=== PATIENT | male | born 1940 | race African-American/Black ===

== ENCOUNTER 2021-07-23 15:02 | Inpatient (IN) | payer MEDICARE, OTHER ==
[~2021-07-23] VITALS: Ht 182.9 cm; Wt 94.2 kg
[2021-07-23 15:20] LABS: ABG BASE EXCESS -4.4 mmol/L (-2.0-3.0); ABG CARBOXYHEMOGLOBIN 0.9 % (0.0-1.5); ABG HCO3 21.6 mmol/L (22.0-26.0); ABG METHEMOGLOBIN 0.1 % (0.0-1.5); ABG OXYGEN CONTENT 15.9 mL/dL (15.0-23.0); ABG OXYHEMOGLOBIN 93.1 % (94.0-100.0); ABG PCO2 30 mmHg (35-45); ABG PH 7.434 (7.35-7.450); ABG TOTAL HEMOGLOBIN 12.1 G/dL (12.0-18.0); PO2, ARTERIAL BG 73.8 mmHg (71.0-79.0); SOURCE, BLOOD GAS ARTERIAL; TEMPERATURE, FAHRENHEIT, BG 99.3 FAHREN (96.0-98.6)
[2021-07-23 15:21] LABS: SITE, BLOOD GAS LFT RADIAL
[2021-07-23 15:22] LABS: ABG A-A DIFF O2 147.4 mmHg (10-20.0); O2 DEVICE,BLOOD GAS NC (ROOM AIR)
[2021-07-23] MEDS ORDERED: TICA90TA PO (15:31)
[2021-07-23] MEDS ORDERED: XALA2.5OS OU (15:31)
[2021-07-23] MEDS ORDERED: DONE10TA8 PO (15:31)
[2021-07-23] MEDS ORDERED: ATOR40TA28 PO (15:31)
[2021-07-23] MEDS ORDERED: TRAZ-252 PO (15:31)
[2021-07-23] MEDS ORDERED: CARB-98 PO (15:31)
[2021-07-23] MEDS ORDERED: ISOS30TA92 PO (15:31)
[2021-07-23] MEDS ORDERED: IPRA4AER IH (15:31)
[2021-07-23] MEDS ORDERED: LOSA-370 PO (15:31)
[2021-07-23] MEDS ORDERED: ALLO-45 PO (15:31)
[2021-07-23] MEDS ORDERED: FERR-89 PO (15:31)
[2021-07-23] MEDS ORDERED: MELA5TAB40 PO (15:31)
[2021-07-23] MEDS ORDERED: FURO20 PO (15:31)
[2021-07-23] MEDS ORDERED: METO-558 PO (15:31)
[2021-07-23] MEDS ORDERED: ASPI-1450 PO (15:31)
[2021-07-23] MEDS ORDERED: POLY17PO47 PO (15:31)
[2021-07-23 15:34] LABS: BASOPHILS % (AUTO) 0.1 % (0.0-2.0); EOSINOPHILS % (AUTO) 0.1 % (1.0-6.0); HEMOGLOBIN 11.6 g/dL (13.5-17.5); LYMPHOCYTES % (AUTO) 10.4 % (22.0-44.0); MEAN CORPUSCULAR HEMOGLOBIN 34.8 pg (26.0-34.0); MEAN CORPUSCULAR HGB CONC 33.2 G/dL (31.0-37.0); MEAN CORPUSCULAR VOLUME 105 fL (80-100); MONOCYTES # (AUTO) 0.6 K/uL (0.1-1.0); MONOCYTES % (AUTO) 5.7 % (2.0-9.0); NEUTROPHILS # (AUTO) 8.3 K/uL (1.8-7.7); NEUTROPHILS % (AUTO) 83.7 % (40.0-70.0); PLATELET COUNT (AUTO) 299 K/uL (150-450); RED BLOOD CELL COUNT(AUTO) 3.34 MIL/uL (4.50-5.90); RED CELL DISTRIBUTION WIDTH 14.6 % (11.5-14.5)
[2021-07-23 15:55] LABS: ANION GAP 7 mmol/L (8-16); CALCIUM, TOTAL 8.8 mg/dL (8.8-10.5); CARBON DIOXIDE 27 mmol/L (22-29); CHLORIDE 101 mmol/L (98-107); CREATININE 1.15 mg/dL (0.60-1.30); GLUCOSE,RANDOM 174 mg/dL (70-110); POTASSIUM 3.5 mmol/L (3.5-5.1); SODIUM SERUM 135 mmol/L (136-145); UREA NITROGEN, BLOOD 10 mg/dL (7-18)
[2021-07-23 15:57] LABS: GLOMERULAR FILTR. RATE CALC > 60 mL/min (>60)
[2021-07-23 16:08] LABS: LACTIC ACID 2.3 mmol/L (0.4-2.0)
[2021-07-23 16:12] LABS: ALANINE AMINOTRANSFERASE 5 U/L (12-78); ALBUMIN 2.9 g/dL (3.4-5.0); ALKALINE PHOSPHATASE 117 U/L (46-116); ASPARTATE AMINOTRANSFERASE 16 U/L (15-37); BILIRUBIN,TOTAL 0.9 mg/dL (0.1-1.0); C-REACTIVE PROTEIN QUANT 13.98 mg/dL (0.00-0.30); CREATINE KINASE, TOTAL ONLY 62 U/L (39-308); FERRITIN 323 ng/mL (26-388); LACTATE DEHYDROGENASE 194 U/L (85-227)
[2021-07-23 16:14] LABS: D-DIMER 2.84 mg/L FEU (0.00-0.50); PROTHROMBIN TIME 10.9 SEC (9.4-11.6)
[2021-07-23] MEDS ORDERED: ACETAMINOPHEN 1000 MG/ISO-OSM 100 ML IV ONE (16:15)
[2021-07-23] MEDS ORDERED: DEXAMETHASONE SOD PHOS 4 MG/ML 5 ML VIAL IVP ONE (16:15)
[2021-07-23] MEDS ORDERED: AZITHROMYCIN 500 MG/NS 250 ML IV ONE (16:15)
[2021-07-23] MEDS ORDERED: CefTRIAXone 1 GM/DEXTROSE 50 ML IV ONE (16:15)
[2021-07-23 16:18] LABS: B-TYPE NATRIURETIC PEPTIDE 44 pg/mL (0-100)
[2021-07-23] MEDS ORDERED: SODIUM CHLORIDE 0.9% 2,500 ML IV ONE (16:45)
[2021-07-23] MEDS ORDERED: REMDESIVIR 200 MG in SODIUM CHLORIDE 0.9% 250 ML IV ONE (17:15)
[2021-07-23] MEDS ORDERED: BENZONATATE 100 MG CAPSULE PO PRN (17:15)
[2021-07-23] MEDS ORDERED: ONDANSETRON HCL 4 MG/2 ML VIAL IVP PRN (17:15)
[2021-07-23] MEDS ORDERED: DEXTROSE 50%-WATER 25 GM/50 ML SYRINGE IVP PRN (17:15)
[2021-07-23] MEDS ORDERED: ALBUTEROL SULFATE HFA 90 MCG/PUFF 8 GM INHALER IH PRN (17:15)
[2021-07-23] MEDS ORDERED: ACETAMINOPHEN 325 MG TABLET PO PRN (17:15)
[2021-07-23 17:24] LABS: INFLUENZA TYPE A NEGATIVE FOR TYPE A (NEGATIVE); INFLUENZA TYPE B NEGATIVE FOR TYPE B (NEGATIVE)
[2021-07-23] MEDS ORDERED: PIPERACILLIN/TAZO 3.375 GM/D5W 50 ML IV ONE (19:30)
[2021-07-23] MEDS: HEPARIN SODIUM,PORCINE 5,000 UNITS/ML VIAL SQ SCH ×2 (21:00→22:29)
[2021-07-23 22:00] VITALS: BP 108/67
[2021-07-23] MEDS: FAMOTIDINE 20 MG TABLET PO SCH (22:29)
[2021-07-23] MEDS: DOCUSATE SODIUM 100 MG CAPSULE PO SCH (22:29)
[2021-07-23] MEDS: ATORVASTATIN CALCIUM 20 MG TABLET PO SCH (22:29)
[2021-07-23] MEDS: TICAGRELOR 90 MG TABLET PO SCH (22:29)
[2021-07-24] VITALS: BP 112/30
[2021-07-24 02:11] LABS: GLUCOSE,POINT OF CARE 174 MG/DL (70-110)
[2021-07-24] MEDS ORDERED: SODIUM CHLORIDE 0.9% 250 ML IV ONE (02:18)
[2021-07-24] MEDS: PIPERACILLIN/TAZO 3.375 GM/D5W 50 ML IV SCH ×4 (02:20→20:40)
[2021-07-24 04:00] VITALS: BP 104/50
[2021-07-24 06:08] LABS: ALANINE AMINOTRANSFERASE 10 U/L (12-78); ALBUMIN 2.6 g/dL (3.4-5.0); ALKALINE PHOSPHATASE 98 U/L (46-116); ANION GAP 8 mmol/L (8-16); ASPARTATE AMINOTRANSFERASE 17 U/L (15-37); BILIRUBIN,TOTAL 0.8 mg/dL (0.1-1.0); CALCIUM, TOTAL 8.5 mg/dL (8.8-10.5); CARBON DIOXIDE 26 mmol/L (22-29); CHLORIDE 104 mmol/L (98-107); CREATININE 1.23 mg/dL (0.60-1.30); GLUCOSE,RANDOM 157 mg/dL (70-110); POTASSIUM 3.4 mmol/L (3.5-5.1); SODIUM SERUM 138 mmol/L (136-145); TOTAL PROTEIN, SERUM 7.8 g/dL (6.4-8.2); UREA NITROGEN, BLOOD 12 mg/dL (7-18)
[2021-07-24 06:49] LABS: GLOMERULAR FILTR. RATE CALC > 60 mL/min (>60)
[2021-07-24] MEDS: INSULIN LISPRO 100 UNITS/ML SQ PRN ×2 (06:49)
[2021-07-24 08:00] VITALS: BP 129/57
[2021-07-24] MEDS: DEXAMETHASONE SOD PHOS 4 MG/ML VIAL IVP SCH (08:15)
[2021-07-24] MEDS: ASPIRIN 81 MG CHEWABLE TABLET PO SCH (08:16)
[2021-07-24] MEDS: TICAGRELOR 90 MG TABLET PO SCH ×2 (08:16→22:43)
[2021-07-24] MEDS: DOCUSATE SODIUM 100 MG CAPSULE PO SCH ×2 (08:17→21:20)
[2021-07-24] MEDS: FAMOTIDINE 20 MG TABLET PO SCH ×2 (08:18→21:21)
[2021-07-24] MEDS ORDERED: BENZONATATE 100 MG CAPSULE PO PRN (08:30)
[2021-07-24 12:00] VITALS: BP 108/56
[2021-07-24 12:27] LABS: GLUCOSE,POINT OF CARE 156 MG/DL (70-110)
[2021-07-24 13:26] LABS: GLUCOSE,POINT OF CARE 137 MG/DL (70-110)
[2021-07-24] MEDS: HEPARIN SODIUM,PORCINE 5,000 UNITS/ML VIAL SQ SCH ×2 (15:40→21:21)
[2021-07-24 16:00] VITALS: BP 109/55
[2021-07-24] MEDS: REMDESIVIR 100 MG in SODIUM CHLORIDE 0.9% 250 ML IV SCH (17:51)
[2021-07-24 18:59] VITALS: BP 107/52
[2021-07-24] MEDS: ATORVASTATIN CALCIUM 20 MG TABLET PO SCH (21:20)
[2021-07-24 23:32] LABS: GLUCOMETER DEV NAME(LOC) 5S.1; GLUCOSE,POINT OF CARE 147 MG/DL (70-110)
[2021-07-25] VITALS (7 sets, daily range): BP systolic 106–164; BP diastolic 63–90
[2021-07-25] MEDS: PIPERACILLIN/TAZO 3.375 GM/D5W 50 ML IV SCH ×4 (01:26→21:42)
[2021-07-25] MEDS: ASPIRIN 81 MG CHEWABLE TABLET PO SCH (09:00)
[2021-07-25] MEDS: HEPARIN SODIUM,PORCINE 5,000 UNITS/ML VIAL SQ SCH ×3 (09:00→20:21)
[2021-07-25] MEDS: FAMOTIDINE 20 MG TABLET PO SCH ×2 (09:00→20:21)
[2021-07-25] MEDS: DOCUSATE SODIUM 100 MG CAPSULE PO SCH ×2 (09:00→20:21)
[2021-07-25] MEDS: TICAGRELOR 90 MG TABLET PO SCH ×2 (09:00→20:21)
[2021-07-25] MEDS: DEXAMETHASONE SOD PHOS 4 MG/ML VIAL IVP SCH (10:09)
[2021-07-25] MEDS ORDERED: DEXTROSE 5%-0.45% SODIUM CHL 1,000 ML IV ONE (11:30)
[2021-07-25 11:48] LABS: ALANINE AMINOTRANSFERASE 11 U/L (12-78); ALBUMIN 2.3 g/dL (3.4-5.0); ALKALINE PHOSPHATASE 87 U/L (46-116); ANION GAP 13 mmol/L (8-16); ASPARTATE AMINOTRANSFERASE 44 U/L (15-37); CALCIUM, TOTAL 8.8 mg/dL (8.8-10.5); CARBON DIOXIDE 23 mmol/L (22-29); CHLORIDE 108 mmol/L (98-107); CREATININE 1.22 mg/dL (0.60-1.30); GLUCOSE,RANDOM 156 mg/dL (70-110); SODIUM SERUM 144 mmol/L (136-145); TOTAL PROTEIN, SERUM 6.9 g/dL (6.4-8.2); UREA NITROGEN, BLOOD 24 mg/dL (7-18)
[2021-07-25 11:56] LABS: GLOMERULAR FILTR. RATE CALC > 60 mL/min (>60); POTASSIUM 2.9 mmol/L (3.5-5.1)
[2021-07-25] MEDS ORDERED: SODIUM CHLORIDE 0.9% 250 ML IV ONE (12:22)
[2021-07-25] MEDS: POTASSIUM CHL 10 MEQ/WATER 50 ML IV PRN ×4 (12:24→18:42)
[2021-07-25 12:47] LABS: GLUCOMETER DEV NAME(LOC) 5S.1; GLUCOSE,POINT OF CARE 152 MG/DL (70-110)
[2021-07-25] MEDS: INSULIN LISPRO 100 UNITS/ML SQ PRN ×2 (17:36→20:27)
[2021-07-25] MEDS: ATORVASTATIN CALCIUM 20 MG TABLET PO SCH (20:21)
[2021-07-25] MEDS: REMDESIVIR 100 MG in SODIUM CHLORIDE 0.9% 250 ML IV SCH (20:22)
[2021-07-26 00:04] VITALS: BP 150/90
[2021-07-26] MEDS: POTASSIUM CHL 10 MEQ/WATER 50 ML IV PRN (00:35)
[2021-07-26] MEDS: PIPERACILLIN/TAZO 3.375 GM/D5W 50 ML IV SCH ×4 (02:44→21:51)
[2021-07-26 04:36] VITALS: BP 172/89
[2021-07-26] MEDS ORDERED: CloNIDine HCL 0.1 MG TABLET PO PRN (04:45)
[2021-07-26 06:07] LABS: BASOPHILS % (AUTO) 0.1 % (0.0-2.0); EOSINOPHILS % (AUTO) 0 % (1.0-6.0); HEMATOCRIT 32.7 % (41-53); HEMOGLOBIN 10.8 g/dL (13.5-17.5); LYMPHOCYTES # (AUTO) 1.7 K/uL (1.0-4.8); LYMPHOCYTES % (AUTO) 12.4 % (22.0-44.0); MEAN CORPUSCULAR HEMOGLOBIN 34.3 pg (26.0-34.0); MEAN CORPUSCULAR HGB CONC 32.9 G/dL (31.0-37.0); MEAN CORPUSCULAR VOLUME 104 fL (80-100); MONOCYTES # (AUTO) 0.8 K/uL (0.1-1.0); MONOCYTES % (AUTO) 6.1 % (2.0-9.0); NEUTROPHILS # (AUTO) 11.1 K/uL (1.8-7.7); NEUTROPHILS % (AUTO) 81.4 % (40.0-70.0); PLATELET COUNT (AUTO) 268 K/uL (150-450); RED BLOOD CELL COUNT(AUTO) 3.14 MIL/uL (4.50-5.90); RED CELL DISTRIBUTION WIDTH 14.9 % (11.5-14.5)
[2021-07-26 06:59] LABS: ALANINE AMINOTRANSFERASE 12 U/L (12-78); ALBUMIN 2.4 g/dL (3.4-5.0); ALKALINE PHOSPHATASE 85 U/L (46-116); ANION GAP 11 mmol/L (8-16); ASPARTATE AMINOTRANSFERASE 42 U/L (15-37); CARBON DIOXIDE 25 mmol/L (22-29); CHLORIDE 108 mmol/L (98-107); CREATININE 1.15 mg/dL (0.60-1.30); GLOMERULAR FILTR. RATE CALC > 60 mL/min (>60); GLUCOSE,RANDOM 163 mg/dL (70-110); POTASSIUM 3.2 mmol/L (3.5-5.1); SODIUM SERUM 144 mmol/L (136-145); TOTAL PROTEIN, SERUM 7.4 g/dL (6.4-8.2); UREA NITROGEN, BLOOD 24 mg/dL (7-18)
[2021-07-26 08:22] VITALS: BP 159/73
[2021-07-26 08:26] LABS: GLUCOMETER DEV NAME(LOC) 5S.1; GLUCOSE,POINT OF CARE 148 MG/DL (70-110)
[2021-07-26 08:26] LABS: GLUCOMETER DEV NAME(LOC) 5S.2B; GLUCOSE,POINT OF CARE 177 MG/DL (70-110)
[2021-07-26 08:26] LABS: GLUCOMETER DEV NAME(LOC) 5S.2B; GLUCOSE,POINT OF CARE 162 MG/DL (70-110)
[2021-07-26 08:26] LABS: GLUCOMETER DEV NAME(LOC) 5S.1; GLUCOSE,POINT OF CARE 162 MG/DL (70-110)
[2021-07-26] MEDS: ASPIRIN 81 MG CHEWABLE TABLET PO SCH (08:54)
[2021-07-26] MEDS: FAMOTIDINE 20 MG TABLET PO SCH ×2 (08:54→21:51)
[2021-07-26] MEDS: HEPARIN SODIUM,PORCINE 5,000 UNITS/ML VIAL SQ SCH ×3 (08:55→21:52)
[2021-07-26] MEDS: POTASSIUM CHLORIDE 20 MEQ ER TABLET PO PRN (08:55)
[2021-07-26] MEDS: DEXAMETHASONE SOD PHOS 4 MG/ML VIAL IVP SCH (08:57)
[2021-07-26] MEDS: DOCUSATE SODIUM 100 MG CAPSULE PO SCH ×2 (09:00→21:00)
[2021-07-26 10:42] VITALS: BP 141/73
[2021-07-26] MEDS ORDERED: POTASSIUM CHLORIDE 20 MEQ ER TABLET PO PRN (11:00)
[2021-07-26] MEDS ORDERED: POTASSIUM CHL 10 MEQ/WATER 50 ML IV PRN (11:00)
[2021-07-26] MEDS: TICAGRELOR 90 MG TABLET PO SCH ×2 (11:54→21:51)
[2021-07-26] MEDS: INSULIN LISPRO 100 UNITS/ML SQ PRN ×2 (12:01→18:15)
[2021-07-26 16:58] VITALS: BP 149/80
[2021-07-26] MEDS: CARBIDOPA/LEVODOPA 25-100 MG TABLET PO SCH (18:13)
[2021-07-26] MEDS: REMDESIVIR 100 MG in SODIUM CHLORIDE 0.9% 250 ML IV SCH (19:50)
[2021-07-26 20:12] VITALS: BP 163/77
[2021-07-26 20:21] LABS: GLUCOMETER DEV NAME(LOC) 5S.1; GLUCOSE,POINT OF CARE 173 MG/DL (70-110)
[2021-07-26 20:22] LABS: GLUCOMETER DEV NAME(LOC) 5N.1C; GLUCOSE,POINT OF CARE 182 MG/DL (70-110)
[2021-07-26] MEDS: ATORVASTATIN CALCIUM 20 MG TABLET PO SCH (21:53)
[2021-07-26 23:31] LABS: GLUCOMETER DEV NAME(LOC) 5S.1; GLUCOSE,POINT OF CARE 134 MG/DL (70-110)
[2021-07-27] VITALS (7 sets, daily range): BP systolic 124–169; BP diastolic 44–95
[2021-07-27] MEDS: CARBIDOPA/LEVODOPA 25-100 MG TABLET PO SCH ×4 (00:32→23:56)
[2021-07-27] MEDS: PIPERACILLIN/TAZO 3.375 GM/D5W 50 ML IV SCH ×4 (03:02→20:32)
[2021-07-27 06:41] LABS: GLUCOMETER DEV NAME(LOC) 5N.1C; GLUCOSE,POINT OF CARE 165 MG/DL (70-110)
[2021-07-27] MEDS: INSULIN LISPRO 100 UNITS/ML SQ PRN ×3 (06:49→21:30)
[2021-07-27] MEDS: ASPIRIN 81 MG CHEWABLE TABLET PO SCH (08:09)
[2021-07-27] MEDS: TICAGRELOR 90 MG TABLET PO SCH ×2 (08:10→20:33)
[2021-07-27] MEDS: DEXAMETHASONE SOD PHOS 4 MG/ML VIAL IVP SCH (08:10)
[2021-07-27] MEDS: FAMOTIDINE 20 MG TABLET PO SCH ×2 (08:10→20:33)
[2021-07-27] MEDS: DOCUSATE SODIUM 100 MG CAPSULE PO SCH ×2 (08:11→20:33)
[2021-07-27] MEDS: HEPARIN SODIUM,PORCINE 5,000 UNITS/ML VIAL SQ SCH ×3 (08:12→20:33)
[2021-07-27 08:29] LABS: ALBUMIN 2.3 g/dL (3.4-5.0); ALKALINE PHOSPHATASE 80 U/L (46-116); ANION GAP 9 mmol/L (8-16); ASPARTATE AMINOTRANSFERASE 28 U/L (15-37); BILIRUBIN,TOTAL 0.9 mg/dL (0.1-1.0); CALCIUM, TOTAL 8.7 mg/dL (8.8-10.5); CARBON DIOXIDE 26 mmol/L (22-29); CHLORIDE 108 mmol/L (98-107); CREATININE 1.14 mg/dL (0.60-1.30); GLUCOSE,RANDOM 148 mg/dL (70-110); POTASSIUM 3.3 mmol/L (3.5-5.1); SODIUM SERUM 143 mmol/L (136-145); TOTAL PROTEIN, SERUM 6.9 g/dL (6.4-8.2); UREA NITROGEN, BLOOD 25 mg/dL (7-18)
[2021-07-27 08:33] LABS: GLOMERULAR FILTR. RATE CALC > 60 mL/min (>60)
[2021-07-27 09:07] LABS: ALANINE AMINOTRANSFERASE 3 U/L (12-78)
[2021-07-27] MEDS: POTASSIUM CHLORIDE 20 MEQ ER TABLET PO PRN (12:21)
[2021-07-27] MEDS ORDERED: SODIUM CHLORIDE 0.9% 250 ML IV ONE ×2 (18:15→20:27)
[2021-07-27] MEDS: REMDESIVIR 100 MG in SODIUM CHLORIDE 0.9% 250 ML IV SCH (18:28)
[2021-07-27 18:57] LABS: GLUCOMETER DEV NAME(LOC) 5S.2B; GLUCOSE,POINT OF CARE 192 MG/DL (70-110)
[2021-07-27] MEDS: POTASSIUM CHL 10 MEQ/WATER 50 ML IV PRN ×2 (20:34→23:57)
[2021-07-27] MEDS: ATORVASTATIN CALCIUM 20 MG TABLET PO SCH (20:36)
[2021-07-28 00:06] LABS: GLUCOMETER DEV NAME(LOC) 6N.2; GLUCOSE,POINT OF CARE 174 MG/DL (70-110)
[2021-07-28] MEDS ORDERED: SODIUM CHLORIDE 0.9% 250 ML IV ONE (01:38)
[2021-07-28] MEDS: PIPERACILLIN/TAZO 3.375 GM/D5W 50 ML IV SCH ×2 (01:45→08:40)
[2021-07-28 04:37] VITALS: BP 161/88
[2021-07-28 07:56] LABS: BASOPHILS % (AUTO) 0.1 % (0.0-2.0); EOSINOPHILS % (AUTO) 0.1 % (1.0-6.0); HEMATOCRIT 29.7 % (41-53); HEMOGLOBIN 9.9 g/dL (13.5-17.5); LYMPHOCYTES # (AUTO) 1.4 K/uL (1.0-4.8); LYMPHOCYTES % (AUTO) 17.2 % (22.0-44.0); MEAN CORPUSCULAR HEMOGLOBIN 34.3 pg (26.0-34.0); MEAN CORPUSCULAR HGB CONC 33.2 G/dL (31.0-37.0); MEAN CORPUSCULAR VOLUME 103 fL (80-100); MONOCYTES # (AUTO) 1.1 K/uL (0.1-1.0); MONOCYTES % (AUTO) 13.1 % (2.0-9.0); NEUTROPHILS # (AUTO) 5.8 K/uL (1.8-7.7); NEUTROPHILS % (AUTO) 69.5 % (40.0-70.0); PLATELET COUNT (AUTO) 208 K/uL (150-450); RED BLOOD CELL COUNT(AUTO) 2.87 MIL/uL (4.50-5.90); RED CELL DISTRIBUTION WIDTH 14.4 % (11.5-14.5)
[2021-07-28 08:02] LABS: GLUCOMETER DEV NAME(LOC) 6N.1; GLUCOSE,POINT OF CARE 113 MG/DL (70-110)
[2021-07-28 08:23] VITALS: BP 143/85
[2021-07-28] MEDS: HEPARIN SODIUM,PORCINE 5,000 UNITS/ML VIAL SQ SCH (08:40)
[2021-07-28] MEDS: CARBIDOPA/LEVODOPA 25-100 MG TABLET PO SCH (08:40)
[2021-07-28] MEDS: TICAGRELOR 90 MG TABLET PO SCH (08:40)
[2021-07-28] MEDS: FAMOTIDINE 20 MG TABLET PO SCH (08:41)
[2021-07-28] MEDS: ASPIRIN 81 MG CHEWABLE TABLET PO SCH (08:41)
[2021-07-28] MEDS: DEXAMETHASONE SOD PHOS 4 MG/ML VIAL IVP SCH (08:45)
[2021-07-28] MEDS: DOCUSATE SODIUM 100 MG CAPSULE PO SCH (09:00)
[2021-07-28 11:31] VITALS: BP 153/75
[2021-07-28 11:51] LABS: COVID AG,FIA SOURCE NASOPHARYNGEAL
[2021-07-28 12:32] LABS: GLUCOMETER DEV NAME(LOC) 6N.2; GLUCOSE,POINT OF CARE 198 MG/DL (70-110)
[2021-07-28] MEDS: INSULIN LISPRO 100 UNITS/ML SQ PRN (13:18)
== END 2021-07-28 14:15 | DRG 177 ==
LOC: EMS 15:05 → ICU 17:06 → 5N 07-24 18:15 → 6N 07-27 17:31
PROVIDERS: ADMIT Internal Medicine; ATTEND Internal Medicine
PROC: XW033E5 Introduction of Remdesivir Anti-infective into Peripheral Vein, Percutaneous Approach, New Technology Group 5 (ICD-10-PCS; principal; 2021-07-24)
DX: U07.1 COVID-19 (principal); J12.82 Pneumonia due to coronavirus disease 2019; J96.01 Acute respiratory failure with hypoxia; R65.11 Systemic inflammatory response syndrome (SIRS) of non-infectious origin with acute organ dysfunction; E87.2 Acidosis; J44.0 Chronic obstructive pulmonary disease with (acute) lower respiratory infection; D68.59 Other primary thrombophilia; F02.80 Dementia in other diseases classified elsewhere, unspecified severity, without behavioral disturbance, psychotic disturbance, mood disturbance, and anxiety; G20 Parkinson's disease; I10 Essential (primary) hypertension; I25.10 Atherosclerotic heart disease of native coronary artery without angina pectoris; I25.2 Old myocardial infarction; Z95.5 Presence of coronary angioplasty implant and graft; E11.40 Type 2 diabetes mellitus with diabetic neuropathy, unspecified; R62.7 Adult failure to thrive; Z78.1 Physical restraint status
CPT/HCPCS: 36600; 71045; 74018; 80053; 82550; 82728; 82805; 82962; 83605; 83615; 83880; 84132; 84145; 84484; 85025; 85379; 85384; 85610; 85730; 86140; 87040; 87081; 87804; 92526; 92610; 93005; 93306; 97162; 99291; G0378; J0131; J0456; J0696; J1100; J1644; J2543; J3480; J7030; J7050; Q9967; 36415-L1; 36415-TC; U0003